=== PATIENT | male | born 1990 | race Two or more races ===

== ENCOUNTER 2022-05-23 17:32 | Emergency (ER) | payer SELFPAY ==
[~2022-05-23] VITALS: Ht 172.7 cm; Wt 76.0 kg
[2022-05-23 17:54] VITALS: BP 127/79
[2022-05-23] MEDS ORDERED: IBUP800T27 PO (21:54)
== END 2022-05-23 22:39 | disposition home or self-care (01) ==
LOC: ER 17:32
DX: S46.912A Strain of unspecified muscle, fascia and tendon at shoulder and upper arm level, left arm, initial encounter (principal); S20.211A Contusion of right front wall of thorax, initial encounter; F17.210 Nicotine dependence, cigarettes, uncomplicated; V43.52XA Car driver injured in collision with other type car in traffic accident, initial encounter; Y93.89 Activity, other specified; Y92.410 Unspecified street and highway as the place of occurrence of the external cause; Y99.8 Other external cause status
CPT/HCPCS: 71101; 73030